=== PATIENT | female | born 1980 | race Caucasian/White ===

== ENCOUNTER → 2017-08-30 | Outpatient (CLI) | payer BC ==
--- NOTE | 2017-08-30 13:33 | RAD ---
HISTORY: Wheezing, acute bronchitis Study: Two-view chest Comparison: 04/05/2015 Findings: The trachea is midline. The cardiac silhouette is unremarkable. The lungs are clear without focal i nfiltrate or effusion. The bony thorax is unremarkable. IMPRESSION: 1. No acute cardiopulmonary disease. Reported By:
== END ==
LOC: RAD 11:09
DX: J02.9 Acute pharyngitis, unspecified (principal); R06.2 Wheezing
CPT/HCPCS: 71046

== ENCOUNTER 2020-10-23 13:27 | Observation (INO) ==
[~2020-10-23 13:27] MED LIST: NS IRRIGATION* 3,000 ML ONE
[2020-10-23] MEDS ORDERED: ZOFRAN INJ 4 MG VIAL IVP PRN ×2 (13:39→16:12)
[2020-10-23] MEDS ORDERED: NS 1,000 ML IV 1,000 ML IV SCH (14:00)
--- NOTE | 2020-10-23 14:08 | RAD ---
HISTORYPreop acute cholecystitisSTUDYChest AP portableCOMPARISONNoneFINDINGSThe heart is upper limits normal size. No congestive heart failure is noted. The lungs are free of acute infiltrates. No pleural effusions are identified. Bony thorax is unremarkable.IMPRESSIONNo significant abnormality identifiedElectronically signed by: CRIS PICHARDO (Oct 23, 2020 14:05:42)
--- NOTE | 2020-10-23 14:15 | DR.H&P ---
H&P History & Physical for Day of: H&P Date: 10/23/20 Chief Complaint Chief Complaint: Abdominal pain Allergies Allergies Allergy/AdvReac Type Severity Reaction Status Date / Time No Known Drug Allergies Allergy Verified 10/23/20 14:07 History of Present Illness History of Present Illness: Pt is a 40 year old female past medical history of hypertension presenting as a direct admit from clinic after complaining of intermittent abdominal pain that has gradually worsened over the the past week. She reports epigastric and RUQ pain every times she eats. Pain is sharp, aching, with radiation to her back, associated with nausea and vomiting. Denies fevers, chills. She drinks alcohol on occasion. Pt was sent for imaging U/S of gallbladder that revealed: Cholelithiasis with biliary sludge and gallbladder wall thickening is suspicious for acute cholecystitis. Consider HIDA scan for further evaluation as clinically warranted. Labs pending. Pt was placed NPO, sta rted on IVF, Zofran prn for nausea, IV morphine prn for pain control. General surgery was consulted for further evaluation of acute cholecystitis. Will continue to monitor patient closely. Past Medical History Past Medical History: Hypertension Past Surgical History Surgical History: Appendectomy and [employer] Surgery Medications Home Medications: No Known Drug Allergies Allergy (Verified 10/23/20 14:07) CONTINUE taking the following medications amoxicillin-pot clavulanate 1 tab PO BID 10/23/20 [History] Labs Result Diagrams: 10/23/20 14:08 10/23/20 14:08 Review of Systems Constitutional: denies Fever and Chills Eyes: No Symptoms Reported ENT: No Symptoms Reported Respiratory: No Symptoms Reported Cardiovascular: No Symptoms Reported Gastrointestinal: Nausea, Vomiting and Abdominal Pain Genitourinary: No Symptoms Reported Musculoskeletal: No Symptoms Reported Skin: No Symptoms Reported Neurological: No Symptoms Reported Physical Exam Vital Signs: Blood Pressure [Left Arm] 156/74 Blood Pressure 156/74 Oriented: Normal Eyes: Normal Ear: Normal Nose: Normal Throat: Normal Respiratory: Clear Throughout Cardiovascular: Normal : Normal Auscultation: Bowel Sounds: Normal Palpation: Normal Tenderness: RUQ, Epigastric and Moderate Skin: Normal Musculoskeletal: Normal Psychiatric: Normal Mood Description: Calm and Appropriate Affect: Normal Speech Pattern: Clear and Appropriate Assessment/Plan (1) Acute cholecystitis: Status: Acute Plan: NPO, IV antibiotics, IVF, pain and nausea control Consult general surgery Review H&P Reviewed: Yes Patient was examined?: Yes
[2020-10-23 14:20] LABS: BASOPHILS # (AUTO) 0.1 X10^3/uL (0.0-0.1); BASOPHILS % (AUTO) 1.3 % (0.2-1.0); EOSINOPHILS # (AUTO) 0.3 x10^3/uL (0.0-0.2); EOSINOPHILS % (AUTO) 2.8 % (0.9-2.9); HEMATOCRIT 43.1 % (36.0-47.0); HEMOGLOBIN 14.3 g/dL (12.0-16.0); LYMPHOCYTES # (AUTO) 2.2 X10^3/uL (1.3-2.9); LYMPHOCYTES % (AUTO) 21.7 % (21.0-51.0); MEAN CORPUSCULAR HEMOGLOBIN 27.5 pg (27.0-34.0); MEAN CORPUSCULAR HGB CONC 33.1 g/dL (33.0-35.0); MEAN CORPUSCULAR VOLUME 83.1 fL (80.0-100.0); MEAN PLATELET VOLUME 9.3 fL (7.4-11.0); MONOCYTES # (AUTO) 0.7 x10^3/uL (0.3-0.8); MONOCYTES % (AUTO) 7.3 % (0.0-13.0); NEUTROPHILS # (AUTO) 6.8 x10^3/uL (2.2-4.8); NEUTROPHILS % (AUTO) 66.9 % (42.0-75.0); PLATELET COUNT 263 X10^3/uL (150.0-450.0); RED BLOOD COUNT 5.19 X10^6/uL (3.5-5.4); RED CELL DISTRIBUTION WIDTH 15.8 % (11.6-16.5); WHITE BLOOD COUNT 10.1 X10^3/uL (3.6-10.0)
[2020-10-23] MEDS ORDERED: FENTANYL VIAL INJ 250 mcg ONE (14:21)
[2020-10-23] MEDS ORDERED: ANCEF 1 GRAM IV PREMIX* 2 G/100 ML BAG IV ONE (14:29)
[2020-10-23] MEDS ORDERED: LR 1,000 ML IV 1,000 ML IV ONE (14:29)
[2020-10-23 14:35] LABS: ALANINE AMINOTRANSFERASE 36 Units/L (12-78); ALBUMIN 3.5 g/dL (3.4-5.0); ALKALINE PHOSPHATASE 59 Units/L (46-116); ASPARTATE AMINO TRANSFERASE 26 Units/L (15-37); BLOOD UREA NITROGEN 5 mg/dL (7-18); CALCIUM 8.8 mg/dL (8.5-10.1); CARBON DIOXIDE 27.5 mmol/L (21-32); CHLORIDE 104 mmol/L (98-107); CREATININE 0.69 mg/dL (0.55-1.02); SODIUM 140 mmol/L (136-145); TOTAL PROTEIN 7.6 g/dL (6.4-8.2); eGFR NON BLACK RACES > 60 (>60)
[2020-10-23] MEDS ORDERED: BACTROBAN TOPICAL OINT ONE (14:37)
[2020-10-23 14:42] LABS: SERUM PREGNANCY TEST, QUAL NEGATIVE <10 mIU/mL
[2020-10-23] MEDS ORDERED: DIPRIVAN VIAL ONE (14:45)
[2020-10-23] MEDS ORDERED: NORCURON INJ 10 MG VIAL ONE (14:45)
[2020-10-23] MEDS ORDERED: VERSED ONE (14:45)
[2020-10-23] MEDS ORDERED: TORADOL 30 MG VIAL ONE (14:45)
[2020-10-23] MEDS ORDERED: ROBINUL ONE (14:45)
[2020-10-23] MEDS ORDERED: QUELICIN (OR ANECTINE) ONE (14:45)
[2020-10-23] MEDS ORDERED: SUPRANE ONE ×2 (14:45→14:54)
[2020-10-23] MEDS ORDERED: ZOFRAN INJ 4 MG VIAL ONE (14:45)
[2020-10-23] MEDS ORDERED: PHENERGAN INJ 25 MG IM PRN ×2 (16:12→17:39)
[2020-10-23] MEDS ORDERED: BENADRYL INJ 50 MG VIAL IVP PRN (16:12)
[2020-10-23] MEDS ORDERED: REGLAN INJ 10 MG VIAL IVP PRN (16:12)
[2020-10-23] MEDS ORDERED: DILAUDID INJ ONE (16:20)
[2020-10-23] MEDS: DILAUDID INJ IVP PRN ×2 (16:20→16:30)
[2020-10-23] MEDS ORDERED: DILAUDID INJ IVP PRN (16:23)
[2020-10-23] MEDS: D5 1/2 NS 1,000 ML 1,000 ML IV SCH (17:00)
[2020-10-23] MEDS ORDERED: PHENERGAN INJ 25 MG IM ONE (17:46)
[2020-10-23 18:44] VITALS: BMI 46.8
[2020-10-23] MEDS: MORPHINE SULFATE INJ 2 MG INJ IVP PRN (21:15)
[2020-10-24] MEDS: MORPHINE SULFATE INJ 2 MG INJ IVP PRN ×2 (03:07→08:20)
[2020-10-24] MEDS: D5 1/2 NS 1,000 ML 1,000 ML IV SCH ×2 (03:12→09:07)
[2020-10-24 08:23] LABS: BASOPHILS # (AUTO) 0.1 X10^3/uL (0.0-0.1); BASOPHILS % (AUTO) 0.7 % (0.2-1.0); EOSINOPHILS # (AUTO) 0.2 x10^3/uL (0.0-0.2); EOSINOPHILS % (AUTO) 1.3 % (0.9-2.9); HEMOGLOBIN 12.6 g/dL (12.0-16.0); LYMPHOCYTES # (AUTO) 2.1 X10^3/uL (1.3-2.9); LYMPHOCYTES % (AUTO) 17.9 % (21.0-51.0); MEAN CORPUSCULAR HEMOGLOBIN 27.5 pg (27.0-34.0); MEAN CORPUSCULAR HGB CONC 33.2 g/dL (33.0-35.0); MEAN CORPUSCULAR VOLUME 82.7 fL (80.0-100.0); MEAN PLATELET VOLUME 9.1 fL (7.4-11.0); MONOCYTES # (AUTO) 0.9 x10^3/uL (0.3-0.8); MONOCYTES % (AUTO) 7.6 % (0.0-13.0); NEUTROPHILS # (AUTO) 8.4 x10^3/uL (2.2-4.8); NEUTROPHILS % (AUTO) 72.5 % (42.0-75.0); PLATELET COUNT 248 X10^3/uL (150.0-450.0); RED CELL DISTRIBUTION WIDTH 15.7 % (11.6-16.5); WHITE BLOOD COUNT 11.6 X10^3/uL (3.6-10.0)
[2020-10-24 08:39] LABS: ALANINE AMINOTRANSFERASE 45 Units/L (12-78); ALBUMIN 3.1 g/dL (3.4-5.0); ALKALINE PHOSPHATASE 55 Units/L (46-116); ASPARTATE AMINO TRANSFERASE 44 Units/L (15-37); BLOOD UREA NITROGEN 4 mg/dL (7-18); CALCIUM 8.4 mg/dL (8.5-10.1); CARBON DIOXIDE 31.1 mmol/L (21-32); CHLORIDE 104 mmol/L (98-107); COR CA(FOR HYPOALB) 9.1 mg/dL (8.5-10.1); CREATININE 0.78 mg/dL (0.55-1.02); SODIUM 140 mmol/L (136-145); TOTAL PROTEIN 6.8 g/dL (6.4-8.2); eGFR NON BLACK RACES > 60 (>60)
[2020-10-24] MEDS ORDERED: LEVAQUIN PREMIX IV 500 MG 500 MG/100 ML BAG IV SCH (09:00)
[2020-10-24] MEDS ORDERED: PROTONIX INJ 40 MG VIAL IVP SCH (09:00)
[2020-10-24 12:13] VITALS: BP 120/55
--- NOTE | 2020-10-24 13:35 | DR.PROGNOT ---
Hospital Progress Notes - Progress Note for Day of: Progress Note Date: 10/24/20 - Chief Complaint Chief Complaint: doing very well . no nausea today .. tolerating low fat diet .. normal LFT and Bilirubin . - Past Medical Family Social History Past Med/Fam/Surg Hx: No changes since H&P Allergies: Allergies No Known Drug Allergies Allergy (Verified 10/23/20 14:07) - Review Of Systems ROS: No change since H&P - Vital Signs Vital Signs: Temperature 97.9 F Pulse Rate [Right] 80 Pulse Rate 72 Respiratory Rate 20 Blood Pressure [Right Arm] 120/55 Blood Pressure [Left Arm] 123/59 Blood Pressure 149/67 O2 Sat by Pulse Oximetry 97 - Physical Exam Oriented: Normal Eyes: Normal Ear: Normal Nose: Normal Throat: Normal Cardiovascular: Normal : Normal GI:Auscultation: Normal GI:Palpation: Normal GI: Tenderness: Epigastric, RUQ, Moderate Skin: Normal Musculoskeletal: Normal Psychiatric: Normal Mood Description: Calm, Appropriate Affect: Normal Speech Pattern: Clear, Appropriate - Laboratory and Diagnostics Result Diagrams: 10/24/20 08:14 10/24/20 08:14 Labs: Laboratory WBC 11.6 X10^3/uL (3.6-10.0) H 10/24/20 08:14 RBC 4.60 X10^6/uL (3.5-5.4) 10/24/20 08:14 Hgb 12.6 g/dL (12.0-16.0) 10/24/20 08:14 Hct 38.0 % (36.0-47.0) 10/24/20 08:14 MCV 82.7 fL (80.0-100.0) 10/24/20 08:14 MCH 27.5 pg (27.0-34.0) 10/24/20 08:14 MCHC 33.2 g/dL (33.0-35.0) 10/24/20 08:14 RDW 15.7 % (11.6-16.5) 10/24/20 08:14 Plt Count 248 X10^3/uL (150.0-450.0) 10/24/20 08:14 MPV 9.1 fL (7.4-11.0) 10/24/20 08:14 Neut % (Auto) 72.5 % (42.0-75.0) 10/24/20 08:14 Lymph % (Auto) 17.9 % (21.0-51.0) L 10/24/20 08:14 Leon % (Auto) 7.6 % (0.0-13.0) 10/24/20 08:14 Eos % (Auto) 1.3 % (0.9-2.9) 10/24/20 08:14 Baso % (Auto) 0.7 % (0.2-1.0) 10/24/20 08:14 Neut # (Auto) 8.4 x10^3/uL (2.2-4.8) H 10/24/20 08:14 Lymph # (Auto) 2.1 X10^3/uL (1.3-2.9) 10/24/20 08:14 Leon # (Auto) 0.9 x10^3/uL (0.3-0.8) H 10/24/20 08:14 Eos # (Auto) 0.2 x10^3/uL (0.0-0.2) 10/24/20 08:14 Baso # (Auto) 0.1 X10^3/uL (0.0-0.1) 10/24/20 08:14 Absolute Nucleated RBC 0.0 /100WBC 10/24/20 08:14 Sodium 140 mmol/L (136-145) 10/24/20 08:14 Corrected Sodium TNP 10/24/20 08:14 Potassium 3.9 mmol/L (3.5-5.1) 10/24/20 08:14 Chloride 104 mmol/L (98-107) 10/24/20 08:14 Carbon Dioxide 31.1 mmol/L (21-32) 10/24/20 08:14 BUN 4 mg/dL (7-18) L 10/24/20 08:14 Creatinine 0.78 mg/dL (0.55-1.02) 10/24/20 08:14 Est GFR (MDRD) Af Amer > 60 (>60) 10/24/20 08:14 Est GFR (MDRD) Non-Af > 60 (>60) 10/24/20 08:14 Glucose 99 mg/dL (65-99) 10/24/20 08:14 Calcium 8.4 mg/dL (8.5-10.1) L 10/24/20 08:14 Corrected Calcium 9.1 mg/dL (8.5-10.1) 10/24/20 08:14 Total Bilirubin 0.60 mg/dL (0.2-1.0) 10/24/20 08:14 AST 44 Units/L (15-37) H 10/24/20 08:14 ALT 45 Units/L (12-78) 10/24/20 08:14 Alkaline Phosphatase 55 Units/L (46-116) 10/24/20 08:14 Total Protein 6.8 g/dL (6.4-8.2) 10/24/20 08:14 Albumin 3.1 g/dL (3.4-5.0) L 10/24/20 08:14 Globulin 3.7 g/dL (2.5-4.5) 10/24/20 08:14 Albumin/Globulin Ratio 0.8 Ratio (1.1-2.1) L 10/24/20 08:14 HCG, Qual Negative <10 mIU/mL 10/23/20 14:08 SARS-CoV-2 (PCR) Cancelled 10/23/20 14:00 Influenza Type A (PCR) Cancelled 10/23/20 14:00 Influenza Type B (PCR) Cancelled 10/23/20 14:00 RSV (PCR) Cancelled 10/23/20 14:00 SARS CoV-2 RNA Rapid CLEMENTE Negative (NEGATIVE) 10/23/20 14:00 Tissue Pathology To follow 10/23/20 15:50 - Assessment and Plan 1: acute calculus cholecystitis , s/p lap hermila .. november d/c and to follow in 10 days .
--- NOTE | 2020-10-24 15:45 | W.DIS.FURT ---
Summary of Discharge Discharge Summary of Date Date of Exam: 10/24/20 Admission Date Date of Admission: 10/23/20 Admission Diagnosis Hospital Course: Pt is a 40 year old female past medical history of hypertension admitted for acute cholecystitis revealed on U/S showing Cholelithiasis with biliary sludge and gallbladder wall thickening is suspicious for acute cholecystitis. General surgery was consulted and patient was taken to the OR for lap hermila. No complications post surgery. Labs: Wbc 11.6, Hgb 12.6, Plt 248, Na 140, K 3.9, Cr 0.78, Glucose 99. Pt on morning of discharge tolerating liquids and diet was advanced without concerns. Pt was discharged in stable condition. Given rx ciprofloxacin x 5 days. Instructed to follow up with pcp and general surgery. Vital Signs: Vital Signs (72 hours) 10/23/20 14:28 10/23/20 16:10 10/23/20 16:15 Temperature 98.5 F 97.9 F Pulse Rate 93 H 93 H Pulse Rate [Right] 74 Respiratory Rate 20 18 18 Blood Pressure 182/87 153/73 Blood Pressure [Left Arm] Blood Pressure [Right Arm] 139/96 O2 Sat by Pulse Oximetry 98 99 99 10/23/20 16:20 10/23/20 16:25 10/23/20 16:30 Temperature Pulse Rate 79 80 75 Pulse Rate [Right] Respiratory Rate 18 18 18 Blood Pressure 152/73 152/72 145/65 Blood Pressure [Left Arm] Blood Pressure [Right Arm] O2 Sat by Pulse Oximetry 95 98 99 10/23/20 16:35 10/23/20 16:40 10/23/20 16:45 Temperature 98.1 F Pulse Rate 83 72 Pulse Rate [Right] 74 Respiratory Rate 17 18 14 Blood Pressure 151/68 149/67 Blood Pressure [Left Arm] 169/73 Blood Pressure [Right Arm] O2 Sat by Pulse Oximetry 99 98 100 10/23/20 16:50 10/23/20 17:00 10/23/20 17:15 Temperature 97.8 F Pulse Rate Pulse Rate [Right] 70 78 Respiratory Rate 18 22 20 Blood Pressure Blood Pressure [Left Arm] 141/67 123/59 Blood Pressure [Right Arm] O2 Sat by Pulse Oximetry 94 L 93 L 10/23/20 17:30 10/23/20 17:45 10/23/20 18:45 Temperature 97.7 F 97.6 F Pulse Rate Pulse Rate [Right] 81 79 73 Respiratory Rate 20 18 20 Blood Pressure Blood Pressure [Left Arm] Blood Pressure [Right Arm] 141/66 147/55 O2 Sat by Pulse Oximetry 93 L 94 L 100 10/23/20 19:45 10/23/20 20:00 10/23/20 20:45 Temperature 97.9 F 98 F 97.7 F Pulse Rate Pulse Rate [Right] 67 72 70 Respiratory Rate 14 18 18 Blood Pressure Blood Pressure [Left Arm] Blood Pressure [Right Arm] 112/56 118/64 148/72 O2 Sat by Pulse Oximetry 99 97 96 10/23/20 21:15 10/23/20 21:45 10/24/20 00:00 Temperature 97.6 F 98.7 F Pulse Rate Pulse Rate [Right] 78 64 Respiratory Rate 14 14 14 Blood Pressure Blood Pressure [Left Arm] Blood Pressure [Right Arm] 133/65 128/60 O2 Sat by Pulse Oximetry 95 94 L 10/24/20 03:07 10/24/20 03:37 10/24/20 04:00 Temperature 98.7 F Pulse Rate Pulse Rate [Right] 69 Respiratory Rate 14 12 14 Blood Pressure Blood Pressure [Left Arm] Blood Pressure [Right Arm] 147/72 O2 Sat by Pulse Oximetry 93 L 10/24/20 08:00 10/24/20 08:20 10/24/20 08:50 Temperature 99.0 F Pulse Rate Pulse Rate [Right] 81 Respiratory Rate 20 17 17 Blood Pressure Blood Pressure [Left Arm] Blood Pressure [Right Arm] 139/78 O2 Sat by Pulse Oximetry 96 10/24/20 12:00 Temperature 97.9 F Pulse Rate Pulse Rate [Right] 80 Respiratory Rate 20 Blood Pressure Blood Pressure [Left Arm] Blood Pressure [Right Arm] 120/55 O2 Sat by Pulse Oximetry 97 Labs: Laboratory Last Values WBC 11.6 X10^3/uL (3.6-10.0) H 10/24/20 08:14 RBC 4.60 X10^6/uL (3.5-5.4) 10/24/20 08:14 Hgb 12.6 g/dL (12.0-16.0) 10/24/20 08:14 Hct 38.0 % (36.0-47.0) 10/24/20 08:14 MCV 82.7 fL (80.0-100.0) 10/24/20 08:14 MCH 27.5 pg (27.0-34.0) 10/24/20 08:14 MCHC 33.2 g/dL (33.0-35.0) 10/24/20 08:14 RDW 15.7 % (11.6-16.5) 10/24/20 08:14 Plt Count 248 X10^3/uL (150.0-450.0) 10/24/20 08:14 MPV 9.1 fL (7.4-11.0) 10/24/20 08:14 Neut % (Auto) 72.5 % (42.0-75.0) 10/24/20 08:14 Lymph % (Auto) 17.9 % (21.0-51.0) L 10/24/20 08:14 Jewell % (Auto) 7.6 % (0.0-13.0) 10/24/20 08:14 Eos % (Auto) 1.3 % (0.9-2.9) 10/24/20 08:14 Baso % (Auto) 0.7 % (0.2-1.0) 10/24/20 08:14 Neut # (Auto) 8.4 x10^3/uL (2.2-4.8) H 10/24/20 08:14 Lymph # (Auto) 2.1 X10^3/uL (1.3-2.9) 10/24/20 08:14 Jewell # (Auto) 0.9 x10^3/uL (0.3-0.8) H 10/24/20 08:14 Eos # (Auto) 0.2 x10^3/uL (0.0-0.2) 10/24/20 08:14 Baso # (Auto) 0.1 X10^3/uL (0.0-0.1) 10/24/20 08:14 Absolute Nucleated RBC 0.0 /100WBC 10/24/20 08:14 Sodium 140 mmol/L (136-145) 10/24/20 08:14 Corrected Sodium TNP 10/24/20 08:14 Potassium 3.9 mmol/L (3.5-5.1) 10/24/20 08:14 Chloride 104 mmol/L (98-107) 10/24/20 08:14 Carbon Dioxide 31.1 mmol/L (21-32) 10/24/20 08:14 BUN 4 mg/dL (7-18) L 10/24/20 08:14 Creatinine 0.78 mg/dL (0.55-1.02) 10/24/20 08:14 Est GFR (MDRD) Af Amer > 60 (>60) 10/24/20 08:14 Est GFR (MDRD) Non-Af > 60 (>60) 10/24/20 08:14 Glucose 99 mg/dL (65-99) 10/24/20 08:14 Calcium 8.4 mg/dL (8.5-10.1) L 10/24/20 08:14 Corrected Calcium 9.1 mg/dL (8.5-10.1) 10/24/20 08:14 Total Bilirubin 0.60 mg/dL (0.2-1.0) 10/24/20 08:14 AST 44 Units/L (15-37) H 10/24/20 08:14 ALT 45 Units/L (12-78) 10/24/20 08:14 Alkaline Phosphatase 55 Units/L (46-116) 10/24/20 08:14 Total Protein 6.8 g/dL (6.4-8.2) 10/24/20 08:14 Albumin 3.1 g/dL (3.4-5.0) L 10/24/20 08:14 Globulin 3.7 g/dL (2.5-4.5) 10/24/20 08:14 Albumin/Globulin Ratio 0.8 Ratio (1.1-2.1) L 10/24/20 08:14 HCG, Qual Negative <10 mIU/mL 10/23/20 14:08 SARS-CoV-2 (PCR) Cancelled 10/23/20 14:00 Influenza Type A (PCR) Cancelled 10/23/20 14:00 Influenza Type B (PCR) Cancelled 10/23/20 14:00 RSV (PCR) Cancelled 10/23/20 14:00 SARS CoV-2 RNA Rapid CLEMENTE Negative (NEGATIVE) 10/23/20 14:00 Tissue Pathology To follow 10/23/20 15:50 Reason For Visit: ACUTE CHOLECYSTITIS Discharge Date Discharge Date: 10/24/20 Discharge Diagnosis All Active Problems (Updated 10/23/20 @ 14:19 by Emery Blair) Acute cholecystitis (Acute) Rib pain on left side (Acute) Plan of Treatment: Continue with present treatment and follow up plan. Pt is to keep follow up appointment as instructed and take medications as ordered. Discharge Medications Discharge Medications: No Known Drug Allergies Allergy (Verified 10/23/20 14:07) New Prescriptions ciprofloxacin HCl [Cipro] 500 mg PO Q12H #10 tab 10/24/20 [Rx] hydrocodone-acetaminophen 1 tab PO Q4H PRN 6 Days #15 tab MDD 6 10/24/20 [Rx] Follow up and Referral Follow Up: 1 Week Discharge Disposition Assessment: Stable no acute distress noted at time of discharge. Discharge Disposition: Home Discharge Condition: Stable Discharge Plan Discharge Plan Hospital Course: Pt is a 40 year old female past medical history of hypertension admitted for acute cholecystitis revealed on U/S showing Cholelithiasis with biliary sludge and gallbladder wall thickening is suspicious for acute cholecystitis. General surgery was consulted and patient was taken to the OR for lap hermila. No complications post surgery. Labs: Wbc 11.6, Hgb 12.6, Plt 248, Na 140, K 3.9, Cr 0.78, Glucose 99. Pt on morning of discharge tolerating liquids and diet was advanced without concerns. Pt was discharged in stable condition. Given rx ciprofloxacin x 5 days. Instructed to follow up with pcp and general surgery. Patient Disposition: 01 HOME, SELF-CARE Condition: Stable Health Concerns: Post Hospitalization: new medications and changes needed to prevent readmission or further decline. Pt educated and given instructions on all concerns. Care Plan Goals: Problem: Pain/Alteration in Comfort Goal: Improve/ Resolve Pain; Achieve Pain Tolerance Instructions: Take pain medications as prescribed. Contact your primary care provider if your pain is unrelieved or worsens. Follow up with primary care provider as directed. Plan of Treatment: Continue with present treatment and follow up plan. Pt is to keep follow up appointment as instructed and take medications as ordered. Assessment: Stable no acute distress noted at time of discharge. Prescriptions: New hydrocodone-acetaminophen 5-325 mg Tablet 1 tab PO Q4H MDD 6 PRN6 Days Qty: 15 RF: 0 ciprofloxacin HCl [Cipro] 500 mg Tablet 500 mg PO Q12H Qty: 10 RF: 0 Discontinued amoxicillin-pot clavulanate 875-125 mg tablet 1 tab PO BID RF: 0 Orders to Discharge Patient Discharge Orders: Discharge (Routine); Ordered 10/24/20 Ordered By: HENNY ARENAS Follow ups/Referrals Follow ups/Referrals: Emery Blair [Primary Care Provider] - 11/07/20 1:30 pm HENNY ARENAS [STAFF PHYSICIAN] - 11/07/20 1:50 pm Instructions Instructions: Incentive Spirometer, Laparoscopic Cholecystectomy, Care After, Antibiotic Medicine, Adult, [id number], Pain Scale Information, Adult, Health Risks of Smoking, General Anesthesia, Adult, Care After, Opioid Pain Medicine Information, [id number], Gallbladder Eating Plan, Stitches, [place], or Adhesive Wound Closure, [id number], Incision Care, Adult, [id number], Cholecystitis, [id number], You've Been Prescribed an Antibiotic in the Hospital for an Infection - [facility] (10/2017), Tobacco Use Disorder, Preventing Problems After Surgery, Steps to Quit Smoking, Preventing Constipation After Surgery Activity Restrictions/Additional Instructions: POST OPERATIVE INSTRUCTIONS: (1) A RESPONSIBLE ADULT SHOULD REMAIN WITH YOU TODAY, YOU SHOULD BE ASSISTED TO THE BATHROOM FOR 6-8 HOURS. REST QUIETLY THE REMAINDER OF THE DAY. (2) DEEP BREATHING AND COUGHING EXERCISES FOR THE NEXT 6-8 HOURS. (3)SMOKE ONLY IF SOMEONE IS WITH YOU FOR THE NEXT 12 HOURS. (4) DIET TOLERATED (5) DO NOT DRIVE YOUR AUTOMOBILE OR OPERATE MACHINERY FOR 12-18 HOURS AFTER RECEIVING A GENERAL ANESTHETIC OR WHILE TAKING NARCOTIC PAIN MEDICATION. (6) SOME ANESTHETIC AGENTS AND MEDICATION TAKEN FOR PAIN MAY CAUSE NAUSEA. IF NAUSEA PERSISTS FOR SEVERAL HOURS AT HOME, CALL YOUR DOCTOR. (7) OBSERVE AFFECTED AREA FOR CIRCULATION, CHANGE OF COLOR, NUMBNESS OR TINGLING, COLDNESS, INCREASED PAIN. (8) OBSERVE OPERATIVE AREA FOR SIGNS OF INFECTION: REDNESS, SWELLING, FOUL ODOR, DRAINAGE, AND NOTIFY FOR ANY CONCERNS OR FEVER OVER 101.0. (9) KEEP OPERATIVE AREA CLEAN AND DRY. DO NOT REMOVE DRESSING UNLESS INSTRUCTED TO DO SO BY YOUR DOCTOR. (10) RESUME ALL PREVIOUS MEDICATIONS PRESCRIBED BY YOUR DOCTOR. (11) TAKE PAIN MEDICATIONS PRESCRIBED. (12) NO LIFTING OVER 10LBS. diet low fat at home,no work tell rechecked with at schelduled appointment. this discharge is ok'ed per .follow up in 1 week with . FOLLOW UP WITH DOCTOR ON . Stand Alone Forms: Excuse From Work or School, Precautions for COVID19, Patient Portal, Social Distancing
== END 2020-10-24 13:30 | disposition home or self-care (01) ==
LOC: MED/SURG
PROVIDERS: ADMIT Family Medicine; ATTEND Family Medicine
DX: Z20.822 Contact with and (suspected) exposure to COVID-19; K80.01 Calculus of gallbladder with acute cholecystitis with obstruction; I10 Essential (primary) hypertension